=== PATIENT | female | born 1950 | race Caucasian/White ===

== ENCOUNTER 2020-09-19 16:30 | Emergency (ER) | payer MEDICARE, OTHER ==
[~2020-09-19 16:30] MED LIST: ASPIR 8181 MG PO; CATAPRES 0.1MG0.1 MG PO; FENOFIBRATE145 MG PO; IMDUR ER TAB 3030 MG PO; LOPRESSOR 25 MG25 MG PO; LYRICA100 MG PO; MOVANTIK12.5 MG PO; NITROSTAT0.4 MG SL; OMEPRAZOLE20 MG PO; OXYCODONE HCL10 MG PO; PRINIVIL20 MG PO; SYNTHROID200 MCG PO; TOPAMAX50 MG PO
[2020-09-19 19:35] LABS: RED BLOOD COUNT 5.87 M/UL (4.00-5.10); WHITE BLOOD COUNT 10.2 K/UL (4.5-11.0)
== END 2020-09-20 01:00 | disposition home or self-care (01) ==
LOC: ER1 16:30
PROVIDERS: Physician Assistant Medical
DX: T83.192A Other mechanical complication of indwelling ureteral stent, initial encounter (principal); I10 Essential (primary) hypertension; F17.200 Nicotine dependence, unspecified, uncomplicated
CPT/HCPCS: 80053; 81001; 83690; 83735; 85025; 85610; 85730; 87086; 96374; 99284; J1885